=== PATIENT | male | born 1975 | race Caucasian/White ===

== ENCOUNTER 2017-07-06 11:59 | Inpatient (IN) | payer OTHER ==
[2017-07-06] VITALS (9 sets, daily range): BP systolic 127–153; BP diastolic 79–92; PULSE 62–118; RESP 14–18; O2SAT 99–100
[~2017-07-06] VITALS: Ht 190.5 cm; Wt 78.1 kg
[~2017-07-06 11:59] MED LIST: ACET650T48 PO
[2017-07-06] MEDS ORDERED: MethylprednisoLONE Sodium Succinate 62.5 mg/mL 2 mL Inj IVPUSH ONE (12:55)
[2017-07-06] MEDS ORDERED: 0.9% Sodium Chloride 1,000 ML IV ONE ×2 (12:55→15:30)
[2017-07-06 13:03] LABS: BASOPHILS % (AUTO) 0.1 % (0-3); EOSINOPHILS % (AUTO) 0.1 % (0-5); Mean Corpuscular Volume 87.2 fL (81-100); NEUTROPHILS % (AUTO) 87.3 % (40-74); Platelet Count 168 bil/L (150-400)
--- NOTE | 2017-07-06 13:04 | ED.REPORT ---
HPI-General Illness Date of Service Jul 06, 2017 ED Provider: Phillip Gresham PA-C Olga is an otherwise healthy 41-year-old male presenting to emergency Department with a chief complaint of swollen glands. Patient reports a 2 day history of progressively worsening pain and swelling on the left side of his neck, difficulty swallowing and breathing, sore throat, painful cough and nausea , headache, fever. He reports episodes of dizziness and blurred vision. No notable alleviating or exacerbating factors. Pain is moderate in severity, constant, and aching. Reports he has been been sleeping poorly, treated himself with Mucinex last night and reports good sleep after that. Denies eye pain, ear pain, nasal congestion, rhinorrhea, chest pain, palpitations, shortness of breath. Nursing Notes Stated Complaint: SWOLLEN GLAND,BLURRY VISION Chief Complaint: General Complaint Nursing Notes Reviewed: Yes Allergies: Coded Allergies: No Known Allergies (Verified , 12/29/12) Scheduled PRN Acetaminophen (Acetaminophen) 325 Mg Tablet 650 MG PO Q6H PRN PRN For Fever Guaifenesin (Mucinex) 600 Mg Tablet.er 600 MG PO BID PRN PRN For Congestion General Time Seen by MD: 12:47 Chief Complaint Other (swollen glands) Past Medical History Past Medical History Chronic Back Pain Smoking History Current Every Day Smoker Review of Systems Full Review of Systems Constitutional: Reports: Malaise Eyes: Denies: Diplopia Ears / Nose / Throat: Reports: Sore throat Respiratory: Denies: Wheezing Cardiovascular: Denies: Chest pain GI: Denies: Abdominal pain Male: Denies Dysuria Musculoskeletal: Denies: Back pain Hematologic: Reports Adenopathy Endocrine: Denies: Polyphagia, Weight loss Skin: Denies Rash Neurologic: Denies: Change LOC Psychiatric: Denies: Change mental status Complete sys rev & neg: except as marked. Physical Exam General: Well appearing, well developed, well nourished, no acute distress. Head: Atraumatic, normocephalic. No mastoid tenderness. Eyes: No scleral icterus or injection. No discharge. PERRL. Vision grossly intact. Ears: Pinna and tragus nontender with manipulation. External auditory canal patent, atraumatic and without discharge. Tympanic membrane carrillo, shiny and translucent without fluid, bulging, retraction or perforation. Hearing grossly intact. Nose: Symmetrical, nares patent without discharge. No frontal or maxillary sinus tenderness. Mouth/pharynx: 3 finger trismus. Normal dentition, mucus membranes moist. Tonsils 3+ and symmetrical, uvula midline. Pharynx injected, with white exudate. Voice clear. Neck: Clearly swollen on the left, 2 cm firm nodule. Trachea midline. Respiratory: No stridor. Regular rate and rhythm. Breath sounds present, clear to auscultation and equal bilaterally. No respiratory distress. No increased work of breathing, speaks in complete sentences. Cardiovascular: Regular rate and rhythm, without murmur, gallop or rub. No pedal edema. Gastrointestinal: Abdomen flat and non-tender without guarding or rebound. Bowel sounds normoactive. Skin: Warm and dry. Neurological: Grossly nonfocal. Psychological: Alert and oriented. Speech appropriate, linear and logical. Behavior appropriate. Vital Signs Vital Signs Date Time Temp Pulse Resp B/P Pulse Ox O2 Delivery O2 Flow Rate FiO2 07/06/17 19:12 36.8 62 18 148/79 99 Room Air 07/06/17 18:26 97 153/84 07/06/17 16:06 102 127/79 99 Room Air 07/06/17 15:26 97 151/92 07/06/17 14:06 105 14 134/85 100 Room Air 07/06/17 13:23 37.3 103 16 137/88 99 Room Air 07/06/17 12:09 37.3 118 16 142/91 99 Room Air Interpretation & Diagnostics Interpretation & Diagnostics: PROCEDURE: CT NECK SOFT TISSUES WITH CONTRAST ([id number]) INDICATIONS: left side swelling IMPRESSION: 1. Markedly enlarged tonsils bilaterally with bilateral neck adenopathy, left greater than right and airway narrowing. Additionally, supraclavicular nodes are present. Rim-enhancing low attenuation focus is present within the posterior neck tissues as above. Although there is a minimal appearance of heterogeneity within the tonsils, no definitive abscess is clearly identified. Overall appearance can be suggestive of infection/inflammation. However, other etiologies including lymphoma should be considered as appropriate. The rim-enhancing focus of low attenuation could be truck sales representative of a necrotic mass versus focal infected fluid. Lab Results Interpretation Result Diagram: 07/06/17 1240 07/06/17 1240 Test 07/06/17 12:40 White Blood Count 17.1th/mm3 (3.8-10.1) Red Blood Count 5.30mil/mm3 (4.40-5.80) Hemoglobin 15.9g/dL (13.8-17.2) Hematocrit 46.2% (41.0-50.0) Mean Corpuscular Volume 87.2fL (81-100) Mean Corpuscular Hemoglobin 30.0pg (27.0-35.0) Mean Corpuscular Hemoglobin Concent 34.4% (32.0-37.0) Red Cell Distribution Width 13.2% (12.3-15.4) Platelet Count 168bil/L (150-400) Neutrophils (%) (Auto) 87.3% (40-74) Lymphocytes (%) (Auto) 4.3% (14-46) Monocytes (%) (Auto) 8.0% (4-12) Eosinophils (%) (Auto) 0.1% (0-5) Basophils (%) (Auto) 0.1% (0-3) Sodium Level 136mEq/L (134-144) Potassium Level 4.6mEq/L (3.5-5.2) Chloride Level 97mEq/L (97-108) Carbon Dioxide Level 25mmol/L (18-29) Blood Urea Nitrogen 13mg/dL (6-24) Creatinine 0.81mg/dL (0.76-1.27) Estimat Glomerular Filtration Rate 112mL/min (>59) Glucose Level 218mg/dL (60-99) Lactic Acid Level 1.7mmol/L (0.4-2.0) Calcium Level 9.3mg/dL (8.5-10.1) Magnesium Level 2.1mg/dL (1.6-2.6) Total Bilirubin 0.4mg/dL (0.0-1.2) Aspartate Amino Transf (AST/SGOT) 24U/L (0-50) Alanine Aminotransferase (ALT/SGPT) 28U/L (0-44) Alkaline Phosphatase 120U/L (25-150) Troponin T < 0.010ug/L (0.0-0.011) Total Protein 8.1g/dL (6.4-8.4) Albumin 4.0g/dL (3.4-5.0) Procalcitonin 0.11ng/mL (0.00-0.08) Re-Eval/Medical Decision Med Decision/Clinical Course 1-year-old male presents with a 2 day history of neck swelling. Reports difficulty breathing and swallowing. Admit sore throat, cough denies other symptoms. Physical examination reveals obvious swelling in the left submandibular. Pharynx is erythematous with white exudate and tonsils are 3+ and equal bilaterally. Respirations are non-stridorous, clear lung sounds bilaterally. Patient is mildly tachycardic but afebrile. CBC, CMP, lipase, lactate and blood cultures are ordered as well as CT soft tissue neck after discussion with Dr. Dias. CBC reveals significant leukocytosis, CMP is unremarkable, lactate normal. CT reveals restricted airway, no indication of peritonsillar abscess or retropharyngeal abscess. I discussed the case with Dr. Mckinnon and consulted with Dr. De La Paz. Plan to admit to hospital, Decadron every 8, on telemetry. If significantly improved tomorrow, can be discharged with steroids and antibiotics and outpatient follow-up, otherwise ENT consult. Dr. Mckinnon discussed the case with Dr. Dykes, who accepts admit. Patient is transferred to the floor in stable condition. Consultation : Referral / Consult Name: Abdiel De La Paz MD Consulted With: ENT Call Returned at: 16:38 Note: Discussed case with Dr. De La Paz. He feels this patient can likely be managed outpatient if we feel that is appropriate. After discussion regarding CT and review by him, he recommends Decadron 10 mg q8h while inpatient and reassess status tomorrow. Discharge & Departure Primary Impression: Tonsillar mass Additional Impressions: Tonsillitis Dyspnea Dyspnea type: unspecified Qualified Code: R06.00 - Dyspnea, unspecified Difficulty swallowing Dysphagia type: unspecified Qualified Code: R13.10 - Dysphagia, unspecified Disposition: ADMITTED TO HOSPITAL Discharge Condition Condition: Stable Referrals: NOPCP (PCP) EDSupervising Provider for APC: Naren Mckinnon MD Attending Statement I saw and evaluated the patient in conjunction with the PA. I agree with the plan and findings as documented above. In brief, 41-year-old male presenting to the ED for evaluation who progressively worsening pain and neck swelling over the past several days. Appears uncomfortable, however not acutely toxic. Nonlabored respirations. Mildly tachycardic. No stridor. Good peripheral perfusion. Temp of 37.3C. Given CT findings above, plan initiation of broad-spectrum antibiotics, ENT consult, and admission, as noted above. Patient agreeable to plan as stated, no further questions. Phillip Gresham PA-C Jul 06, 2017 13:04 Naren Mckinnon MD Jul 06, 2017 15:28
[2017-07-06 13:23] LABS: Magnesium 2.1 mg/dL (1.6-2.6)
[2017-07-06 13:32] LABS: TROPONIN T < 0.010 ug/L (0.0-0.011)
--- NOTE | 2017-07-06 14:54 | DRSVH ---
PROCEDURE: CT NECK SOFT TISSUES WITH CONTRAST ([id number]) INDICATIONS: left side swelling TECHNIQUE: After the administration of intravenous contrast, 3.0 mm axial sections acquired from the sella to th e aortic arch. Additional oblique axial 3.0 mm sections acquired through the pharynx. 3 mm thick co yoel reformats were generated. For radiation dose reduction, the following was used: automated exp osure control. COMPARISON: None. FINDINGS: Image quality: Excellent. Lymph nodes: Multiple bilateral enlarged lymph nodes are identified, left greater than right, the lar gest in the left level II, measuring 23 mm in transverse dimension. Scattered supraclavicular nodes a re noted, the largest on the left measuring approximately 13 mm. Vessels: Visualized vasculature appears patent. Neck spaces: There is significant tonsillar enlargement bilaterally with narrowing of the airway at t his level. Narrowest diameter of the airway at this level is 7 mm compared to greatest dimension infe riorly at 25 mm. Vocal cords are unremarkable. Glands: The parotid and submandibular glands appear normal. Thyroid gland is unremarkable. Miscellaneous: Visualized brain and orbits appear normal. Lung apices appear clear. There is a rim- enhancing fluid collection measuring 8 mm in the posterior subcutaneous tissues seen on series 2 imag e 24. There is scattered areas of stranding within the subcutaneous tissues of the posterior neck. Bones: No suspicious bony lesions. Visualized sinuses and mastoids appear unremarkable. IMPRESSION: 1. Markedly enlarged tonsils bilaterally with bilateral neck adenopathy, left greater than right and airway narrowing. Additionally, supraclavicular nodes are present. Rim-enhancing low attenuation focu s is present within the posterior neck tissues as above. Although there is a minimal appearance of he terogeneity within the tonsils, no definitive abscess is clearly identified. Overall appearance can b e suggestive of infection/inflammation. However, other etiologies including lymphoma should be consid ered as appropriate. The rim-enhancing focus of low attenuation could be telephone services sales representative of a necrotic mass versus focal infected fluid. Dictated by: Kristine Richard M.D. on 07/06/2017 at 14:40 Approved by: Kristine Richard M.D. on 07/06/2017 at 14:52
[2017-07-06] MEDS ORDERED: Vancomycin Dose per Pharmacist XX SCH (15:15)
[2017-07-06] MEDS ORDERED: cefTRIAXone Inj 2,000 MG in Dextrose 5% Minibag Plus 50 ML IV ONE (15:15)
[2017-07-06] MEDS ORDERED: Vancomycin Inj 1,750 MG in 0.9% Sodium Chloride 500 ML IV ONE (15:30)
[2017-07-06] MEDS ORDERED: ACET325T51 PO (15:57)
[2017-07-06] MEDS ORDERED: GUAI600T2 PO (17:01)
[2017-07-06] MEDS ORDERED: Ondansetron 2 mg/mL 2 mL Inj IVPUSH PRN ×2 (19:20)
[2017-07-06] MEDS ORDERED: Polyethylene Glycol (PEG) 17 Gm Powder PO PRN (19:20)
[2017-07-06] MEDS ORDERED: Alum-Mag Hydrox-Simeth 30 mL Suspension PO PRN ×2 (19:20)
[2017-07-06] MEDS: Vancomycin Dose per Pharmacist XX SCH (19:40)
--- NOTE | 2017-07-06 19:49 | PCM.HPMED ---
Subjective Date of Service Jul 06, 2017 Primary Provider: Admitting Physician: Gabriela Ross DO Primary Care Physician: Alexey Attending Physician: Gabriela Ross DO Admit Status: From the Emergency Department Chief Complaint: throat pain History of Present Illness: 41yoM with minimal past medical history admitted with throat discomfort and difficulties breathing / swallowing. Patient states that 3 days prior to admission he began having fevers and chills with congestion. These symptoms worsening over the subsequent days and prior to admission he notes that he began having increasing difficulties breathing and swallowing with a sensation of his throat "closing in". Mr. Marquez also endorses lightheadedness and dizziness with positional changes immediately prior to presentation despite continued PO intake of liquids. He denies recent ill contacts or symptoms such as these in the past. Following admission patient states that he is feeling markedly improved and requesting to take PO. On presenation T37.3, HR 118, RR 16, BP 142/91 WBC 17.1 Review of Systems: complete review of systems obtained. positive as per hpi otherwise negative. Allergies Coded Allergies: No Known Allergies (Verified , 12/29/12) Home Medications acetaminophen guaifenesin PMH Chronic back pain Surgical History Back surgery Hand surgery Family History No family history of recurrent infection, chronic back pain Social History Hx Alcohol Use: Yes Alcoholic Drinks Per Day: 2 Hx Substance Use: No Smoking Status: Current Every Day Smoker Exam Vital Signs Vital Sign - Last Date Time Temp Pulse Resp B/P Pulse Ox O2 Delivery O2 Flow Rate FiO2 07/06/17 19:12 36.8 62 18 148/79 99 Room Air Exam General: Alert, Oriented X3, Cooperative, No acute distress Eyes: PERRLA, Scleral Anicteric Mouth: Mouth Normal, Mucous Membranes Moist/Rivers, increased tonsillar erythema / edema no exudate Neck: Supple, no Thyromegaly, trachea central. Lymph: cervical and submandibular lymphadenopathy present Chest & Lungs: Clear to auscultation & percussion, No adventitious breath sounds, no crackles, no wheeze Cardiovascular: Normal S1, Normal S2, No Murmurs/Rubs/Gallops, Regular Rate/ Rhythm Pulses: Radial (present and equal), Dorsalis Pedi (present and equal) Abdomen: Soft,nonTender, Non-distended, Normoactive bowel tones. Musculoskeletal: Unremarkable. Normal range of motion, no swollen or erythematous joints Extremities: No edema, no cyanosis, no clubbing. Skin: No rashes. Warm and dry, no erythematous areas Neurological: Grossly neurologically intact, Normal Speech, Sensation Intact Lab and Diagnostics Result Diagram: 07/06/17 1240 07/06/17 1240 X-Rays, CTs and MRIs Patient Name: ANÍBAL MARQUEZ MR#: [id number] [place] [facility] [place] Phys: Phillip Gresham PA-C Date of Service: 07/06/17 1319 PROCEDURE: CT NECK SOFT TISSUES WITH CONTRAST ([id number]) INDICATIONS: left side swelling TECHNIQUE: After the administration of intravenous contrast, 3.0 mm axial sections acquired from the sella to the aortic arch. Additional oblique axial 3.0 mm sections acquired through the pharynx. 3 mm thick coronal reformats were generated. For radiation dose reduction, the following was used: automated exposure control. COMPARISON: None. FINDINGS: Image quality: Excellent. Lymph nodes: Multiple bilateral enlarged lymph nodes are identified, left greater than right, the largest in the left level II, measuring 23 mm in transverse dimension. Scattered supraclavicular nodes are noted, the largest on the left measuring approximately 13 mm. Vessels: Visualized vasculature appears patent. Neck spaces: There is significant tonsillar enlargement bilaterally with narrowing of the airway at this level. Narrowest diameter of the airway at this level is 7 mm compared to greatest dimension inferiorly at 25 mm. Vocal cords are unremarkable. Glands: The parotid and submandibular glands appear normal. Thyroid gland is unremarkable. Miscellaneous: Visualized brain and orbits appear normal. Lung apices appear clear. There is a rim-enhancing fluid collection measuring 8 mm in the posterior subcutaneous tissues seen on series 2 image 24. There is scattered areas of stranding within the subcutaneous tissues of the posterior neck. Bones: No suspicious bony lesions. Visualized sinuses and mastoids appear unremarkable. IMPRESSION: 1. Markedly enlarged tonsils bilaterally with bilateral neck adenopathy, left greater than right and airway narrowing. Additionally, supraclavicular nodes are present. Rim-enhancing low attenuation focus is present within the posterior neck tissues as above. Although there is a minimal appearance of heterogeneity within the tonsils, no definitive abscess is clearly identified. Overall appearance can be suggestive of infection/inflammation. However, other etiologies including lymphoma should be considered as appropriate. The rim- enhancing focus of low attenuation could be human resources hr representative of a necrotic mass versus focal infected fluid. Dictated by: Kristine Richard M.D. on 07/06/2017 at 14:40 Approved by: Kristine Richard M.D. on 07/06/2017 at 14:52 Assessment & Plan 41yoM with minimal past medical history admitted with pharyngitis currently stable and improved from initial presentation. Sepsis, acute, POA -secondary to URI / pharyngitis -admission d/t concern for airway compromise -ceftriaxone / vancomycin started in ED -BCx pending Pharyngitis/tonsillitis, acute, POA -unknown etiology -rapid strep pending, resp viral panel pending -continue broad spectrum abx, piperacillin-tazobactam / vancomycin (pharmacy to dose) -decadron 10mg q8hr -ENT consulted prior to admission by ED, please contact for formal consult in the am otherwise follow up as outpatient Elevated glucose, acute, POA -no h/o diabetes -hgbA1c Tobacco dependence, chronic, POA -nicotine patch available upon request Patient admitted under observation status with <2 midnights admission due to severity of illness Pain Evaluation: Adequate Pain Control GI Prophylaxis: Not indicated VTE Prophylaxis: Sub-Q Heparin (Unfractionated) Resuscitation Status: CPR: Attempt Resuscitation Gabriela Ross DO Jul 06, 2017 19:49
--- NOTE | 2017-07-06 20:11 | PCM.CONPHA ---
Subjective Requesting Provider: Gabriela Ross DO throat pain Reason for Pharmacy Consult: Vancomycin Dosing Assessment/Plan Assessment/Plan Vancomycin dosing per pharmacy for patient with tonsillitis with goal trough of 15: Concurrent AB= piperacillin/tazobactam Ht 75" Wt 84 K Serum Cr 0.81 Creatinine At=311ls/min (GlobalRP) LA 1.7 Procal 0.11 T-Max 37.3 The patient was given a loading dose of Vancomycin 1.75 Grams IV at 1615 in the ED. Subsequent dosing will be Vancomycin 1.25 grams IV q 8 hours (calculations confirmed in [facility]) with a trough before the fourth total dose at 1530 . A pharmacist will evaluate the trough and adjust dosing as necessary. Tami Garcia [facility] Jul 06, 2017 20:11
[2017-07-06] MEDS ORDERED: Piper-Tazo 3.375 Gm/50 mL D5W Minibag Plus - Q8H over 4 hrs IV ONE ×2 (20:30)
[2017-07-06] MEDS: Dexamethasone 10 mg/mL Inj IVPUSH SCH (20:45)
[2017-07-07] MEDS: Vancomycin Inj 1,250 MG in 0.9% Sodium Chloride 250 ML IV SCH ×3 (00:11→16:37)
[2017-07-07] MEDS: Piperacillin-Tazo 3.375 Gm Inj 3.375 GM in Dextrose 5% Minibag Plus 50 ML IV SCH ×3 (02:08→18:09)
[2017-07-07 03:34] VITALS: BP 134/85; PULSE 84; RESP 16; O2SAT 98
[2017-07-07 03:48] LABS: BASOPHILS % (AUTO) 0.2 % (0-3); EOSINOPHILS % (AUTO) 0 % (0-5); Mean Corpuscular Hemoglobin 29.9 pg (27.0-35.0); Mean Corpuscular Volume 87.1 fL (81-100); NEUTROPHILS % (AUTO) 92.1 % (40-74); Platelet Count 175 bil/L (150-400)
[2017-07-07] MEDS: Dexamethasone 10 mg/mL Inj IVPUSH SCH ×3 (05:23→19:44)
[2017-07-07 06:07] VITALS: PULSE 96
--- NOTE | 2017-07-07 06:26 | NUR ---
Admit Admitted to 2026 from ED via WC. Able to ambulate on arrival. Tele SR/ST 90-110's w/o c/o CP. RA SpO2 w/o SOB. Reports productive cough but not noted during assessment. Droplet precautions initiated per orders. Tolerating PO intake without any noted swallowing issues. TERRAZZO ROLLER initiated while asleep to monitor airway. Denies issues with bowel or bladder. Left neck swollen without any obvious airway obstruction. Denies pain, discomfort or any other complaints at this time. Personal belongings at bedside per patient request. Oriented to call light use with return demonstration.
[2017-07-07 07:36] VITALS: BP 135/78; PULSE 91; RESP 20; O2SAT 98
[2017-07-07] MEDS: Vancomycin Dose per Pharmacist XX SCH (07:41)
[2017-07-07 08:21] VITALS: PULSE 98
[2017-07-07 13:14] LABS: APPEARANCE,URINE CLEAR (CLEAR,HAZY); COLOR,URINE YELLOW (YELLOW); PH,URINE 6.5 (5.0-8.0)
[2017-07-07 13:15] LABS: OCCULT BLOOD,URINE NEGATIVE (NEGATIVE); UROBILINOGEN,URINE NORMAL (NORMAL)
[2017-07-07] MEDS ORDERED: 0.9% Sodium Chloride 250 ML ONE (15:30)
[2017-07-07] MEDS ORDERED: Vancomycin Serum Trough XX ONE (15:30)
[2017-07-07 16:18] VITALS: BP 141/82; PULSE 101; RESP 18; O2SAT 98
--- NOTE | 2017-07-07 16:51 | PCM.PHAPRO ---
Progress Requesting Provider: Gabriela Ross DO throat pain Vancomycin trough at 1553 today is low at 7. Vancomycin has been increased to 1.5 Grams IV q 8 hours with another trough at 2330 07/08/17. Serum creatinine is stable at 0.7, T-Max is 36.7 and WBCs have dropped nicely to 11.1. Pharmacy will continue to follow levels, renal function and response. Tami Garcia [facility] Jul 07, 2017 16:51
--- NOTE | 2017-07-07 17:07 | NUR ---
Social Work- Screening/Multidisciplinary Rounds Data: EMR reviewed. Pt is a 41 year old male admitted Dick for tonsillitis per H&P. Pt's insurance is [employer]. Pt has no PCP at this time. Pt's NOK is aunt Olena Ross, . Pt's readmit risk score is not listed at this time. Pt discussed in multidisciplinary rounds, pt on abx and steroids, likely require hospitalization for 1-2 more days to rule of abscess. No SW needs identified. No concerns related to pt's capacity for self-care identified. SW met with pt at bedside, discussed discharge planning. SW role explained. Pt alert and oriented x3. Pt resides in [place] alone in a 5th wheel on his friends property. Pt drives. Pt is independent at baseline with ADLs and self-care. No concerns for capacity for self-care. Pt declined information related to DPOA/AD. Pt likely to discharge home with his girlfriend to transport via POV. SW wrote phone number and plan on whiteboard, pt is agreeable. No SW needs anticipated, SW continues to follow should needs arise. Assessment: Pt who is independent with ADLs and self-care Plan: Pt likely to discharge home with his girlfriend to transport via POV. No SW needs anticipated, SW continues to follow should needs arise. Sugar Pepe MSW
[2017-07-07] MEDS ORDERED: Vancomycin Inj 500 MG in 0.9% Sodium Chloride 250 ML IV ONE (18:00)
--- NOTE | 2017-07-07 19:37 | NUR ---
Abx Pt on zosyn + vanco IV which are scheduled at the same time and compatibilities are variable in [facility]ed[facility]. Pt's IV abx staggered throughout shift until a low vanco trough result came through and an additional dose of vanco ordered for this evening. Spoke with pharmacist and pharmacist verbalized that they had tested compatibilities for vanco and zosyn and that they were compatible, vanco and zosyn doses hung concurrently.
[2017-07-07 19:40] VITALS: BP 133/89; PULSE 77; RESP 18; O2SAT 98
[2017-07-07] MEDS: HYDROcodone-APAP 5-325 mg Tablet PO PRN (19:44)
--- NOTE | 2017-07-07 21:16 | PCM.PNMED ---
Subjective Date of Service Jul 07, 2017 Subjective overnight: No acute events noted overnight Today: The patient states that he feels much better denying any trouble with swallowing or breathing in general. The patient states that the swelling in his neck is greatly subsided and he initiated eating. The patient has a giant bullae screening next to him and stated that he is already finished the whole thing. The patient is ready to go home but he understands that given the findings on imaging concerning for possible retropharyngeal abscess he will require further monitoring and IV antibiotics. Exam Vital Signs Vital Sign - Last Date Time Temp Pulse Resp B/P Pulse Ox O2 Delivery O2 Flow Rate FiO2 07/07/17 07:36 36.7 91 20 135/78 98 Room Air Intake and Output 07/06/17 07/06/17 07/07/17 Cumulative From/Thru 15:00 23:00 07:00 07/06/17 12:09 - 07/07/17 06:50 Intake Total 1587 ml 1587 ml Output Total 540 ml 540 ml Balance 1047 ml 1047 ml Intake Oral 1587 ml 1587 ml Output Urine Total 540 ml 540 ml Exam General: Middle-aged man appearing mildly disheveled, Alert, Oriented X3, Cooperative, No acute distress Eyes: PERRLA, Scleral Anicteric, noninjected conjunctiva Mouth: Mouth Normal, Mucous Membranes Moist/Schofield, increased tonsillar erythema / edema no exudate Neck: Supple, no Thyromegaly, trachea central. Lymph: cervical and submandibular lymphadenopathy present Chest & Lungs: Clear to auscultation & percussion, No adventitious breath sounds, no crackles, no wheeze Cardiovascular: Regular rate and rhythm, Normal S1, Normal S2, No Murmurs/Rubs/ Gallops Pulses: Radial (present and equal), Dorsalis Pedi (present and equal) Abdomen: Soft,nonTender, Non-distended, Normoactive bowel tones. : No Couch in place Extremities: No edema, no cyanosis, no clubbing. Skin: No rashes. Warm and dry, no erythematous areas Neurological: Nonfocal neurologic exam able to move all extremities spontaneously Psych: Mildly pressured affect fidgety appearing mildy anxious Lab and Diagnostics Result Diagram: 07/07/1733407/07/17334 X-Rays, CTs and MRIs CT NECK SOFT TISSUES WITH CONTRAST IMPRESSION: 1. Markedly enlarged tonsils bilaterally with bilateral neck adenopathy, left greater than right and airway narrowing. Additionally, supraclavicular nodes are present. Rim-enhancing low attenuation focus is present within the posterior neck tissues as above. Although there is a minimal appearance of heterogeneity within the tonsils, no definitive abscess is clearly identified. Overall appearance can be suggestive of infection/inflammation. However, other etiologies including lymphoma should be considered as appropriate. The rim- enhancing focus of low attenuation could be instruments sales representative of a necrotic mass versus focal infected fluid. Approved by: Kristine Richard M.D. on 07/06/2017 at 14:52 Assessment & Plan 41yoM with minimal past medical history admitted with pharyngitis currently stable and improved from initial presentation. Sepsis, acute, POA -Sirs positive with tachycardia of 118 and leukocytosis of 17,000 -secondary tonsillitis with notable ring enhancing lesion noted in posterior oropharynx possibly consistent with retropharyngeal abscess -ceftriaxone / vancomycin started in ED -BCx pending Pharyngitis/tonsillitis, acute, POA -unknown etiology, significant improvement in white blood cell count after administration of antibiotics in spite of significant steroid administration is consistent with possible bacterial infection -Viral PCR negative -Blood cultures ordered and pending -MRSA ordered and pending -continue broad spectrum abx, piperacillin-tazobactam / vancomycin (pharmacy to dose) -decadron 10mg q8hr -ENT consulted prior to admission by ED, please contact for formal consult in the am otherwise follow up as outpatient Elevated glucose, acute, POA -no h/o diabetes -hgbA1c ordered pending Tobacco dependence, chronic, POA -nicotine patch available upon request Patient is likely to remain inpatient for 1-2 more days awaiting culture and sensitivities will likely be discharged on oral antibiotics including Augmentin. GI Prophylaxis: Not indicated VTE Prophylaxis: Sub-Q Heparin (Unfractionated) Resuscitation Status: CPR: Attempt Resuscitation Attending Statement The patient was seen and examined together with Dr. Gallo on 07/07/2017 and I agree with the history, exam and plan as outlined in the note above. . Bipin Gallo DO Jul 07, 2017 07:53 Laron Harkins MD Jul 08, 2017 14:03
[2017-07-08] MEDS: Piperacillin-Tazo 3.375 Gm Inj 3.375 GM in Dextrose 5% Minibag Plus 50 ML IV SCH ×3 (00:57→17:27)
[2017-07-08] MEDS: Vancomycin Inj 1,500 MG in 0.9% Sodium Chloride 500 ML IV SCH ×3 (00:57→17:28)
[2017-07-08 01:00] VITALS: BP 141/87; PULSE 94; RESP 16; O2SAT 98
[2017-07-08 03:42] LABS: BASOPHILS % (AUTO) 0.2 % (0-3); EOSINOPHILS % (AUTO) 0 % (0-5); Mean Corpuscular Hemoglobin 30.2 pg (27.0-35.0); Mean Corpuscular Volume 86.3 fL (81-100); NEUTROPHILS % (AUTO) 89.5 % (40-74); Platelet Count 197 bil/L (150-400)
[2017-07-08 03:43] LABS: ERYTHROCYTE SEDIMENTATION RATE 19 mm/hr (0-15)
[2017-07-08] MEDS: Dexamethasone 10 mg/mL Inj IVPUSH SCH ×3 (04:50→20:07)
--- NOTE | 2017-07-08 05:01 | NUR ---
Sleep: Pt requesting a sleep aide at - Dr. Garg notified, order received for 5mg melatonin. Pt sleeping comfortably overnight. Sp02 maintained on RA. care ongoing.
[2017-07-08] MEDS: Vancomycin Dose per Pharmacist XX SCH (08:30)
[2017-07-08 09:09] VITALS: BP 138/79; PULSE 72; RESP 12; O2SAT 100
[2017-07-08 12:09] VITALS: BP 140/88; PULSE 94; RESP 16; O2SAT 98
--- NOTE | 2017-07-08 13:19 | PCM.PNMED ---
Subjective Date of Service Jul 08, 2017 Subjective Patient notes improvement in his symptoms with decreased throat pain and also decrease swelling of his neck particularly the left side has come down quite a bit. Exam Vital Signs Vital Sign - Last Date Time Temp Pulse Resp B/P Pulse Ox O2 Delivery O2 Flow Rate FiO2 07/08/17 12:09 36.8 94 16 140/88 98 Room Air Intake and Output 07/07/17 07/07/17 07/08/17 Cumulative From/Thru 15:00 23:00 07:00 07/06/17 12:09 - 07/08/17 05:48 Intake Total 1535 ml 1241 ml 5363 ml Output Total 300 ml 840 ml Balance 1235 ml 1241 ml 4523 ml Intake Oral 836 ml 300 ml 2723 ml IV Total 699 ml 941 ml 2640 ml Output Urine Total 300 ml 840 ml # Voids 3 3 # Bowel Movements 1 1 Exam Constitutional: Young male in no acute distress Head: Normocephalic atraumatic mouth: reveals redness and some swelling of the posterior pharynx and uvula Neck reveals some anterior and posterior cervical adenopathy but per patient markedly reduced Chest: Clear to auscultation Cor: Regular rate and rhythm S1-S2 without murmur Abdomen: Soft nontender bowel sounds present Extremities: No pedal edema Skin: No rashes Psych: Mood and affect are appropriate Neuro: Alert and oriented 3, motor strength is intact bilaterally Lab and Diagnostics Laboratory Tests 72 Hours Test 07/06/17 12:40 07/07/17 03:35 07/07/17 07:50 07/07/17 15:53 White Blood Count 17.1th/mm3 (3.8-10.1) 11.1th/mm3 (3.8-10.1) Red Blood Count 5.30mil/mm3 (4.40-5.80) 4.65mil/mm3 (4.40-5.80) Hemoglobin 15.9g/dL (13.8-17.2) 13.9g/dL (13.8-17.2) Hematocrit 46.2% (41.0-50.0) 40.5% (41.0-50.0) Mean Corpuscular Volume 87.2fL (81-100) 87.1fL (81-100) Mean Corpuscular Hemoglobin 30.0pg (27.0-35.0) 29.9pg (27.0-35.0) Mean Corpuscular Hemoglobin Concent 34.4% (32.0-37.0) 34.3% (32.0-37.0) Red Cell Distribution Width 13.2% (12.3-15.4) 13.1% (12.3-15.4) Platelet Count 168bil/L (150-400) 175bil/L (150-400) Neutrophils (%) (Auto) 87.3% (40-74) 92.1% (40-74) Lymphocytes (%) (Auto) 4.3% (14-46) 5.5% (14-46) Monocytes (%) (Auto) 8.0% (4-12) 2.0% (4-12) Eosinophils (%) (Auto) 0.1% (0-5) 0% (0-5) Basophils (%) (Auto) 0.1% (0-3) 0.2% (0-3) Sodium Level 136mEq/L (134-144) 138mEq/L (134-144) Potassium Level 4.6mEq/L (3.5-5.2) 4.1mEq/L (3.5-5.2) Chloride Level 97mEq/L (97-108) 101mEq/L (97-108) Carbon Dioxide Level 25mmol/L (18-29) 21mmol/L (18-29) Blood Urea Nitrogen 13mg/dL (6-24) 15mg/dL (6-24) Creatinine 0.81mg/dL (0.76-1.27) 0.70mg/dL (0.76-1.27) Estimat Glomerular Filtration Rate 112mL/min (>59) 132mL/min (>59) Glucose Level 218mg/dL (60-99) 209mg/dL (60-99) Lactic Acid Level 1.7mmol/L (0.4-2.0) Calcium Level 9.3mg/dL (8.5-10.1) 8.6mg/dL (8.5-10.1) Magnesium Level 2.1mg/dL (1.6-2.6) Total Bilirubin 0.4mg/dL (0.0-1.2) Aspartate Amino Transf (AST/SGOT) 24U/L (0-50) Alanine Aminotransferase (ALT/SGPT) 28U/L (0-44) Alkaline Phosphatase 120U/L (25-150) Troponin T < 0.010ug/L (0.0-0.011) Total Protein 8.1g/dL (6.4-8.4) Albumin 4.0g/dL (3.4-5.0) Procalcitonin 0.11ng/mL (0.00-0.08) Hemoglobin A1c 5.6% (4.8-5.6) Urine Color Yellow (YELLOW) Urine Appearance Clear (CLEAR,HAZY) Urine pH 6.5 (5.0-8.0) Urine Specific Roland 1.035 (1.003-1.035) Urine Protein Negativemg/dL (NEG,TRACE) Urine Glucose (UA) 500mg/dL (NEGATIVE) Urine Ketones Negativemg/dL (NEGATIVE) Urine Occult Blood Negative (NEGATIVE) Urine Nitrite Negative (NEGATIVE) Urine Bilirubin Negative (NEGATIVE) Urine Urobilinogen Normalmg/dL (NORMAL) Urine Leukocyte Esterase Negative (NEGATIVE) Urine RBC 0-2/hpf (0-2) Urine WBC 0-5/hpf (0-5) Urine Epithelial Cells Few/hpf (NONE-MOD) Urine Crystals None seen (NONE SEEN) Urine Bacteria None/hpf (NONE-FEW) Urine Hyaline Casts None/lpf (NONE) Urine Granular Casts None seen (NONE SEEN) Urine Waxy Casts None seen (NONE SEEN) Urine Red Blood Cell Casts None seen (NONE SEEN) Urine White Blood Cell Casts None seen (NONE SEEN) Urine Mucus None seen (None Seen) Urine Trichomonas None seen (NONE SEEN) Urine Yeast None (NONE SEEN) Urinalysis Comment None Urine Culture Reflexed Not indicated Vancomycin Level Trough 7.0mcg/mL Test 07/08/17 03:05 White Blood Count 24.4th/mm3 (3.8-10.1) Red Blood Count 4.54mil/mm3 (4.40-5.80) Hemoglobin 13.7g/dL (13.8-17.2) Hematocrit 39.2% (41.0-50.0) Mean Corpuscular Volume 86.3fL (81-100) Mean Corpuscular Hemoglobin 30.2pg (27.0-35.0) Mean Corpuscular Hemoglobin Concent 34.9% (32.0-37.0) Red Cell Distribution Width 13.0% (12.3-15.4) Platelet Count 197bil/L (150-400) Neutrophils (%) (Auto) 89.5% (40-74) Lymphocytes (%) (Auto) 4.9% (14-46) Monocytes (%) (Auto) 5.0% (4-12) Eosinophils (%) (Auto) 0% (0-5) Basophils (%) (Auto) 0.2% (0-3) Erythrocyte Sedimentation Rate 19mm/hr (0-15) Sodium Level 141mEq/L (134-144) Potassium Level 4.4mEq/L (3.5-5.2) Chloride Level 105mEq/L (97-108) Carbon Dioxide Level 22mmol/L (18-29) Blood Urea Nitrogen 13mg/dL (6-24) Creatinine 0.61mg/dL (0.76-1.27) Estimat Glomerular Filtration Rate 155mL/min (>59) Glucose Level 132mg/dL (60-99) Calcium Level 8.9mg/dL (8.5-10.1) C-Reactive Protein 4.4mg/dL (0.0-0.5) Procalcitonin 0.07ng/mL (0.00-0.08) Result Diagram: 07/08/17 0305 07/08/17 0305 X-Rays, CTs and MRIs CT NECK SOFT TISSUES WITH CONTRAST IMPRESSION: 1. Markedly enlarged tonsils bilaterally with bilateral neck adenopathy, left greater than right and airway narrowing. Additionally, supraclavicular nodes are present. Rim-enhancing low attenuation focus is present within the posterior neck tissues as above. Although there is a minimal appearance of heterogeneity within the tonsils, no definitive abscess is clearly identified. Overall appearance can be suggestive of infection/inflammation. However, other etiologies including lymphoma should be considered as appropriate. The rim- enhancing focus of low attenuation could be student services representative of a necrotic mass versus focal infected fluid. Approved by: Kristine Richard M.D. on 07/06/2017 at 14:52 Assessment & Plan 41yoM with minimal past medical history admitted with pharyngitis currently stable and improved from initial presentation. Sepsis, acute, POA -Sirs positive with tachycardia of 118 and leukocytosis of 17,000 -White count is more elevated today but might be reflective of IV Decadron dosing - Zosyn / vancomycin started in ED -BCx pending and so far negative Pharyngitis/tonsillitis, acute, POA -unknown etiology, significant improvement in white blood cell count after administration of antibiotics in spite of significant steroid administration is consistent with possible bacterial infection -Viral PCR negative -Do not see that any bacterial pharyngeal cultures were obtained however -Blood cultures ordered and pending and so far negative -MRSA ordered and is negative -Gonorrhea and chlamydia DNA probes results are pending -continue broad spectrum abx, piperacillin-tazobactam / vancomycin (pharmacy to dose) -decadron 10mg q8hr -Patient is clinically improving may be ready for discharge tomorrow on oral antibiotics Elevated glucose, acute, POA -no h/o diabetes -hgbA1c and is 5.6 Tobacco dependence, chronic, POA -nicotine patch available upon request Patient is likely to remain inpatient for 1-2 more days awaiting culture and sensitivities will likely be discharged on oral antibiotics including Augmentin. Pain Evaluation: Adequate Pain Control GI Prophylaxis: Not indicated VTE Prophylaxis: Sub-Q Heparin (Unfractionated) Resuscitation Status: CPR: Attempt Resuscitation Time spent 30 minutes Isaura Carl MD Jul 08, 2017 13:19
[2017-07-08 15:57] VITALS: BP 132/82; PULSE 82; RESP 18; O2SAT 96
--- NOTE | 2017-07-08 18:06 | NUR ---
Transfer to [facility] Pt transferred by wheelchair to [facility]. Report given to Hansa Melchor RN. Pt's belongings gathered and transported with pt. Significant other at bedside.
[2017-07-08 18:15] VITALS: BP 134/85; PULSE 84; RESP 20; O2SAT 97
--- NOTE | 2017-07-08 19:13 | NUR ---
receipt from [facility] patient received from [facility] at 1800 into room 3025. patient oriented to room and call light and states understanding. patient up in room independent and denies pain. noted that iv zosyn and iv vanco running concurrently. called pharmacy to verify compatibility. per pharmacy they were compatible but still preferred to run separately. iv zosyn stopped on arrival to floor and vanco infused until complete at 1905 and iv zosyn restarted. pharmacy notified and updated and changed times so that they can be run separately. report given to oncoming rn at 1900 beatris lara.
[2017-07-08] MEDS: HYDROcodone-APAP 5-325 mg Tablet PO PRN (20:07)
[2017-07-08 20:16] VITALS: BP 147/83; PULSE 99; RESP 20; O2SAT 98
[2017-07-08] MEDS ORDERED: Vancomycin Serum Trough XX ONE (23:30)
[2017-07-09] MEDS: Vancomycin Inj 1,500 MG in 0.9% Sodium Chloride 500 ML IV SCH (00:32)
--- NOTE | 2017-07-09 00:43 | PCM.PHAPRO ---
Progress Date of Service: Jul 09, 2017 Requesting Provider: Bipin Gallo DO throat pain sepsis, 2/2 tonsilitis - 41 y/o male pt is receiving 2nd day on Vancomycin 1.5g iv q8, along with Zosyn for empirical coverage of tonsilitis - Cultures showed no growth at 2 days, neg MRSA by PCR, gonorrhea and chlamydia are still pending - Vancomycin trough level is 13.1, within the target range. Will continue with current regimen. Pharmacy will continue to monitor daily Thank you Vin Mobley, PharmD Ccoo Mobley Jul 09, 2017 00:43
[2017-07-09] MEDS ORDERED: Piperacillin-Tazo 3.375 Gm Inj 3.375 GM in Dextrose 5% Minibag Plus 50 ML IV SCH (03:00)
[2017-07-09] MEDS: Dexamethasone 10 mg/mL Inj IVPUSH SCH (04:25)
[2017-07-09 05:34] VITALS: BP 137/79; PULSE 69; RESP 18; O2SAT 99
[2017-07-09 06:46] LABS: BASOPHILS % (AUTO) 0.1 % (0-3); EOSINOPHILS % (AUTO) 0 % (0-5); MONOCYTES % (AUTO) 4.6 % (4-12); Mean Corpuscular Hemoglobin 29.8 pg (27.0-35.0); Mean Corpuscular Volume 87.4 fL (81-100); NEUTROPHILS % (AUTO) 85.4 % (40-74); Platelet Count 201 bil/L (150-400)
--- NOTE | 2017-07-09 07:51 | PCM.DIMED ---
Discharge Instructions Date of Service Jul 09, 2017 Dates of Hospitalization Jul 06, 2017 at 19:42 Discharge Diagnosis Discharge Diagnosis Acute pharyngitis with swelling causing some airway compromise, resolving Diet Discharge Diet: Heart Healthy Activity Discharge Activity: Other (progress as tolerated) Call your provider Call your provider for: Fever or Chills, Shortness of breath, Bleeding, Chest pain, Vomitting, Excessive diarrhea, Weakness (unilateral) Patient Instructions Patient Instructions Take and Complete the course of your medications as prescribed. Follow-up Provider: [facility] Follow-up with PCP in: 1 week (sooner if problems) Isaura Carl MD Jul 09, 2017 07:51
[2017-07-09] MEDS ORDERED: SULF1TAB7 PO (07:57)
[2017-07-09] MEDS ORDERED: PRE20 PO (07:57)
[2017-07-09] MEDS ORDERED: HYDR-4003 PO (07:57)
[2017-07-09] MEDS ORDERED: LACT460C PO (07:57)
[2017-07-09] MEDS ORDERED: AMOX-354 PO (07:57)
[2017-07-09] MEDS ORDERED: NICO1PAT6 TOPICAL (07:57)
[2017-07-09] MEDS ORDERED: AMOX-366 PO (07:57)
--- NOTE | 2017-07-09 08:13 | PCM.DC.MED ---
Discharge Summary Date of Service Jul 09, 2017 Dates of Hospitalization Date of Hospital Admission Jul 06, 2017 at 19:42 Date of Discharge: Jul 09, 2017 Providers: Admitting Physician: Gbariela Ross DO Primary Care Physician: Alexey Attending Physician: Isaura Carl MD Diagnosis at Time of Discharge Diagnosis at Time of Discharge Acute pharyngitis with swelling causing some airway compromise, resolving Consultations ENT Procedures XRay, CTs & MRIs CT NECK SOFT TISSUES WITH CONTRAST IMPRESSION: 1. Markedly enlarged tonsils bilaterally with bilateral neck adenopathy, left greater than right and airway narrowing. Additionally, supraclavicular nodes are present. Rim-enhancing low attenuation focus is present within the posterior neck tissues as above. Although there is a minimal appearance of heterogeneity within the tonsils, no definitive abscess is clearly identified. Overall appearance can be suggestive of infection/inflammation. However, other etiologies including lymphoma should be considered as appropriate. The rim- enhancing focus of low attenuation could be telesales representative of a necrotic mass versus focal infected fluid. Approved by: Kristine Richard M.D. on 07/06/2017 at 14:52 Brief History 41yoM with minimal past medical history admitted with throat discomfort and difficulties breathing / swallowing. Patient states that 3 days prior to admission he began having fevers and chills with congestion. These symptoms worsening over the subsequent days and prior to admission he notes that he began having increasing difficulties breathing and swallowing with a sensation of his throat "closing in". Mr. Campuzano also endorses lightheadedness and dizziness with positional changes immediately prior to presentation despite continued PO intake of liquids. He denies recent ill contacts or symptoms such as these in the past. Following admission patient states that he is feeling markedly improved and requesting to take PO. On presenation T37.3, HR 118, RR 16, BP 142/91 WBC 17.1 Hospital Course 41yoM with minimal past medical history admitted with pharyngitis currently stable and improved from initial presentation. Sepsis, acute, POA -Sirs positive with tachycardia of 118 and leukocytosis of 17,000 -White count is more elevated today but might be reflective of IV Decadron dosing - Zosyn / vancomycin started in ED -BCx pending and so far negative Pharyngitis/tonsillitis, acute, POA -unknown etiology, significant improvement in white blood cell count after administration of antibiotics in spite of significant steroid administration is consistent with possible bacterial infection -Viral PCR negative -Do not see that any bacterial pharyngeal cultures were obtained however -Blood cultures ordered and pending and so far negative -MRSA ordered and is negative -Gonorrhea and chlamydia DNA probes results are negative -decadron 10mg q8hr and at discharge will put on prednisone 20 mg by mouth daily 7 days -Patient is clinically improving and is able to be discharged on July 09 on oral antibiotics. Will do cover with Bactrim and Augmentin as he has been on both IV vancomycin and IV Zosyn. Elevated glucose, acute, POA -no h/o diabetes -hgbA1c and is 5.6 Tobacco dependence, chronic, POA -nicotine patch ordered at discharge Patient is likely to remain inpatient for 1-2 more days awaiting culture and sensitivities will likely be discharged on oral antibiotics including Augmentin. Exam Vital Signs (Last) Date Time Temp Pulse Resp B/P Pulse Ox O2 Delivery O2 Flow Rate FiO2 07/09/17 05:34 36.8 69 18 137/79 99 Room Air Exam Constitutional: Young male in no acute distress Head: Normocephalic atraumatic Mouth: Improving erythema and edema of the posterior pharynx neck: Improving cervical adenopathy Chest: Clear to auscultation Cor: Regular rate and rhythm S1-S2 without murmur Abdomen: Soft nontender bowel sounds present Extremities: No pedal edema Skin: No rashes Psych: Mood and affect are appropriate Neuro: Alert and oriented 3, motor strength is intact bilaterally Laboratory Tests 72 Hours Test 07/06/17 12:40 07/07/17 03:35 07/07/17 07:50 07/07/17 15:53 White Blood Count 17.1th/mm3 (3.8-10.1) 11.1th/mm3 (3.8-10.1) Red Blood Count 5.30mil/mm3 (4.40-5.80) 4.65mil/mm3 (4.40-5.80) Hemoglobin 15.9g/dL (13.8-17.2) 13.9g/dL (13.8-17.2) Hematocrit 46.2% (41.0-50.0) 40.5% (41.0-50.0) Mean Corpuscular Volume 87.2fL (81-100) 87.1fL (81-100) Mean Corpuscular Hemoglobin 30.0pg (27.0-35.0) 29.9pg (27.0-35.0) Mean Corpuscular Hemoglobin Concent 34.4% (32.0-37.0) 34.3% (32.0-37.0) Red Cell Distribution Width 13.2% (12.3-15.4) 13.1% (12.3-15.4) Platelet Count 168bil/L (150-400) 175bil/L (150-400) Neutrophils (%) (Auto) 87.3% (40-74) 92.1% (40-74) Lymphocytes (%) (Auto) 4.3% (14-46) 5.5% (14-46) Monocytes (%) (Auto) 8.0% (4-12) 2.0% (4-12) Eosinophils (%) (Auto) 0.1% (0-5) 0% (0-5) Basophils (%) (Auto) 0.1% (0-3) 0.2% (0-3) Sodium Level 136mEq/L (134-144) 138mEq/L (134-144) Potassium Level 4.6mEq/L (3.5-5.2) 4.1mEq/L (3.5-5.2) Chloride Level 97mEq/L (97-108) 101mEq/L (97-108) Carbon Dioxide Level 25mmol/L (18-29) 21mmol/L (18-29) Blood Urea Nitrogen 13mg/dL (6-24) 15mg/dL (6-24) Creatinine 0.81mg/dL (0.76-1.27) 0.70mg/dL (0.76-1.27) Estimat Glomerular Filtration Rate 112mL/min (>59) 132mL/min (>59) Glucose Level 218mg/dL (60-99) 209mg/dL (60-99) Lactic Acid Level 1.7mmol/L (0.4-2.0) Calcium Level 9.3mg/dL (8.5-10.1) 8.6mg/dL (8.5-10.1) Magnesium Level 2.1mg/dL (1.6-2.6) Total Bilirubin 0.4mg/dL (0.0-1.2) Aspartate Amino Transf (AST/SGOT) 24U/L (0-50) Alanine Aminotransferase (ALT/SGPT) 28U/L (0-44) Alkaline Phosphatase 120U/L (25-150) Troponin T < 0.010ug/L (0.0-0.011) Total Protein 8.1g/dL (6.4-8.4) Albumin 4.0g/dL (3.4-5.0) Procalcitonin 0.11ng/mL (0.00-0.08) Hemoglobin A1c 5.6% (4.8-5.6) Urine Color Yellow (YELLOW) Urine Appearance Clear (CLEAR,HAZY) Urine pH 6.5 (5.0-8.0) Urine Specific [place] 1.035 (1.003-1.035) Urine Protein Negativemg/dL (NEG,TRACE) Urine Glucose (UA) 500mg/dL (NEGATIVE) Urine Ketones Negativemg/dL (NEGATIVE) Urine Occult Blood Negative (NEGATIVE) Urine Nitrite Negative (NEGATIVE) Urine Bilirubin Negative (NEGATIVE) Urine Urobilinogen Normalmg/dL (NORMAL) Urine Leukocyte Esterase Negative (NEGATIVE) Urine RBC 0-2/hpf (0-2) Urine WBC 0-5/hpf (0-5) Urine Epithelial Cells Few/hpf (NONE-MOD) Urine Crystals None seen (NONE SEEN) Urine Bacteria None/hpf (NONE-FEW) Urine Hyaline Casts None/lpf (NONE) Urine Granular Casts None seen (NONE SEEN) Urine Waxy Casts None seen (NONE SEEN) Urine Red Blood Cell Casts None seen (NONE SEEN) Urine White Blood Cell Casts None seen (NONE SEEN) Urine Mucus None seen (None Seen) Urine Trichomonas None seen (NONE SEEN) Urine Yeast None (NONE SEEN) Urinalysis Comment None Urine Culture Reflexed Not indicated Chlamydia trachomatis DNA (ROSARIO) Negative (Negative) Neisseria gonorrhoeae DNA (ROSARIO) Negative (Negative) Vancomycin Level Trough 7.0mcg/mL Test 07/08/17 03:05 07/08/17 23:41 07/09/17 06:15 White Blood Count 24.4th/mm3 (3.8-10.1) 17.9th/mm3 (3.8-10.1) Red Blood Count 4.54mil/mm3 (4.40-5.80) 4.46mil/mm3 (4.40-5.80) Hemoglobin 13.7g/dL (13.8-17.2) 13.3g/dL (13.8-17.2) Hematocrit 39.2% (41.0-50.0) 39.0% (41.0-50.0) Mean Corpuscular Volume 86.3fL (81-100) 87.4fL (81-100) Mean Corpuscular Hemoglobin 30.2pg (27.0-35.0) 29.8pg (27.0-35.0) Mean Corpuscular Hemoglobin Concent 34.9% (32.0-37.0) 34.1% (32.0-37.0) Red Cell Distribution Width 13.0% (12.3-15.4) 13.1% (12.3-15.4) Platelet Count 197bil/L (150-400) 201bil/L (150-400) Neutrophils (%) (Auto) 89.5% (40-74) 85.4% (40-74) Lymphocytes (%) (Auto) 4.9% (14-46) 8.3% (14-46) Monocytes (%) (Auto) 5.0% (4-12) 4.6% (4-12) Eosinophils (%) (Auto) 0% (0-5) 0% (0-5) Basophils (%) (Auto) 0.2% (0-3) 0.1% (0-3) Erythrocyte Sedimentation Rate 19mm/hr (0-15) Sodium Level 141mEq/L (134-144) Potassium Level 4.4mEq/L (3.5-5.2) Chloride Level 105mEq/L (97-108) Carbon Dioxide Level 22mmol/L (18-29) Blood Urea Nitrogen 13mg/dL (6-24) Creatinine 0.61mg/dL (0.76-1.27) Estimat Glomerular Filtration Rate 155mL/min (>59) Glucose Level 132mg/dL (60-99) Calcium Level 8.9mg/dL (8.5-10.1) C-Reactive Protein 4.4mg/dL (0.0-0.5) Procalcitonin 0.07ng/mL (0.00-0.08) Vancomycin Level Trough 13.1mcg/mL Test 07/06/17 12:40 07/07/17 03:35 07/07/17 07:50 07/08/17 03:05 Lactic Acid Level 1.7mmol/L (0.4-2.0) Magnesium Level 2.1mg/dL (1.6-2.6) Total Bilirubin 0.4mg/dL (0.0-1.2) Aspartate Amino Transf (AST/SGOT) 24U/L (0-50) Alanine Aminotransferase (ALT/SGPT) 28U/L (0-44) Alkaline Phosphatase 120U/L (25-150) Troponin T < 0.010ug/L (0.0-0.011) Total Protein 8.1g/dL (6.4-8.4) Albumin 4.0g/dL (3.4-5.0) Hemoglobin A1c 5.6% (4.8-5.6) Urine Color Yellow (YELLOW) Urine Appearance Clear (CLEAR,HAZY) Urine pH 6.5 (5.0-8.0) Urine Specific [place] 1.035 (1.003-1.035) Urine Protein Negativemg/dL (NEG,TRACE) Urine Glucose (UA) 500mg/dL (NEGATIVE) Urine Ketones Negativemg/dL (NEGATIVE) Urine Occult Blood Negative (NEGATIVE) Urine Nitrite Negative (NEGATIVE) Urine Bilirubin Negative (NEGATIVE) Urine Urobilinogen Normalmg/dL (NORMAL) Urine Leukocyte Esterase Negative (NEGATIVE) Urine RBC 0-2/hpf (0-2) Urine WBC 0-5/hpf (0-5) Urine Epithelial Cells Few/hpf (NONE-MOD) Urine Crystals None seen (NONE SEEN) Urine Bacteria None/hpf (NONE-FEW) Urine Hyaline Casts None/lpf (NONE) Urine Granular Casts None seen (NONE SEEN) Urine Waxy Casts None seen (NONE SEEN) Urine Red Blood Cell Casts None seen (NONE SEEN) Urine White Blood Cell Casts None seen (NONE SEEN) Urine Mucus None seen (None Seen) Urine Trichomonas None seen (NONE SEEN) Urine Yeast None (NONE SEEN) Urinalysis Comment None Urine Culture Reflexed Not indicated Chlamydia trachomatis DNA (ROSARIO) Negative (Negative) Neisseria gonorrhoeae DNA (ROSARIO) Negative (Negative) Erythrocyte Sedimentation Rate 19mm/hr (0-15) Sodium Level 141mEq/L (134-144) Potassium Level 4.4mEq/L (3.5-5.2) Chloride Level 105mEq/L (97-108) Carbon Dioxide Level 22mmol/L (18-29) Blood Urea Nitrogen 13mg/dL (6-24) Creatinine 0.61mg/dL (0.76-1.27) Estimat Glomerular Filtration Rate 155mL/min (>59) Glucose Level 132mg/dL (60-99) Calcium Level 8.9mg/dL (8.5-10.1) C-Reactive Protein 4.4mg/dL (0.0-0.5) Procalcitonin 0.07ng/mL (0.00-0.08) Test 07/08/17 23:41 07/09/17 06:15 Vancomycin Level Trough 13.1mcg/mL White Blood Count 17.9th/mm3 (3.8-10.1) Red Blood Count 4.46mil/mm3 (4.40-5.80) Hemoglobin 13.3g/dL (13.8-17.2) Hematocrit 39.0% (41.0-50.0) Mean Corpuscular Volume 87.4fL (81-100) Mean Corpuscular Hemoglobin 29.8pg (27.0-35.0) Mean Corpuscular Hemoglobin Concent 34.1% (32.0-37.0) Red Cell Distribution Width 13.1% (12.3-15.4) Platelet Count 201bil/L (150-400) Neutrophils (%) (Auto) 85.4% (40-74) Lymphocytes (%) (Auto) 8.3% (14-46) Monocytes (%) (Auto) 4.6% (4-12) Eosinophils (%) (Auto) 0% (0-5) Basophils (%) (Auto) 0.1% (0-3) Discharge Medications Discharge Medications Amoxicillin/Clav K 875-125 mg (Augmentin 875-125 mg) 1 Each Tablet 1 TABLET PO BID Prescribed by: ISAURA CARL MD Amoxicillin/Clav K ER 1000-62.5 mg (Amoxicillin/Clav K ER 1000-62.5 mg) 1 Each Tab.er.12h 1 TABLET PO BID Prescribed by: ISAURA CARL MD Lactobacillus Acidophilus (Florajen) 460 Mg Capsule 460 MG PO BIDAC Prescribed by: ISAURA CARL MD Nicotine 21 mg/24 hr Patch (Nicotine 21 mg/24 hr Patch) 1 Each Patch.td24 1 PATCH TOPICAL DAILY Prescribed by: ISAURA CARL MD Prednisone (PredniSONE) 20 Mg Tablet 20 MG PO DAILY Prescribed by: ISAURA CARL MD Sulfamethoxazole/Trimeth 800-160 mg (Bactrim DS) 1 Each Tablet 1 TABLET PO BID Prescribed by: ISAURA CARL MD As needed Acetaminophen (Acetaminophen) 325 Mg Tablet 650 MG PO Q6H PRN PRN For Fever ( Reported) Guaifenesin (Mucinex) 600 Mg Tablet.er 600 MG PO BID PRN PRN For Congestion ( Reported) Hydrocodone-Acetaminophen 5-325 mg (Hydrocodone-Acetaminophen 5-325 mg) 1 Each Tablet 1-2 TABLET PO Q4H PRN PRN For Moderate Pain Prescribed by: ISAURA CARL MD Followup Plan Discharge Diet: Heart Healthy Discharge Activity: Other (progress as tolerated) Patient Instructions Take and Complete the course of your medications as prescribed. Follow-up Provider: [facility] Follow-up with PCP in: 1 week (sooner if problems) Time spent 45 minutes copies to: [facility] Isaura Carl MD Jul 09, 2017 08:12
--- NOTE | 2017-07-09 09:41 | NUR ---
Discharge This RN was going to hang scheduled IV yet patient declined stating "I just want to leave". MD notified. IV discontinued fully intact. Discharge instructions explained to patient and friend who both verbalize understanding and agree to plan of care. All personal belongings given to patient. Patient ambulated off of unit without distress.
--- NOTE | 2017-07-09 10:07 | NUR ---
Social Work-discharge: Data:EMR Reviewed. Pt is on day 3 of hospitalization for Tonciltis per H&P. Pt is medically stable for discharge. Pt has been up independent in his room. Pt's SO to provide transport home today. No discharge needs identified. All updated and agreeable. Assessment:Pt who is independent at baseline. Plan:Pt to discharge home today via POV. No discharge needs identified. All updated and agreeable. NINO Huang
== END 2017-07-09 09:41 | disposition home or self-care (01) | DRG 872 ==
LOC: SED 11:59 → PCC 19:42 → OBSVTOIN 19:42 → PCC 20:43 → MPC 07-08 18:04
PROVIDERS: ADMIT Internal Medicine; ATTEND Internal Medicine
DX: A41.9 Sepsis, unspecified organism (principal); F17.200 Nicotine dependence, unspecified, uncomplicated; J02.9 Acute pharyngitis, unspecified; R73.9 Hyperglycemia, unspecified